=== PATIENT | male | born 1960 | race Caucasian/White ===

== ENCOUNTER 2017-02-09 18:46 | Emergency (ER) | payer OTHER ==
[2017-02-09] MEDS ORDERED: Nitroglycerin 0.4 MG Tab.SL SL PRN ×3 (19:15→19:59)
[2017-02-09] MEDS ORDERED: Sodium Chloride 0.9% 10 ML Syringe FLUSH PRN ×2 (19:19)
[2017-02-09] MEDS ORDERED: Heparin Sodium 5,000 Units/ML Vial IVPUSH ONE (19:19)
[2017-02-09] MEDS ORDERED: Aspirin 81 MG Tab.Chew PO ONE (19:19)
[2017-02-09] MEDS ORDERED: Heparin Sodium/D5W 25,000 UNITS/500 ML BAG IV SCH (19:30)
[2017-02-09] MEDS ORDERED: Nitroglycerin/D5W 25 MG/250 ML BOTTLE IV SCH (19:30)
[2017-02-09] MEDS ORDERED: Ticagrelor 90 MG Tab PO ONE (19:53)
[2017-02-09] MEDS ORDERED: Heparin Sodium/D5W 500 ML ONE (20:16)
[2017-02-09] MEDS ORDERED: cefTRIAXone 1,000 MG in Sodium Chloride 0.9% 50 ML IV SCH (20:30)
[2017-02-09] MEDS ORDERED: Azithromycin 500 MG in Sodium Chloride 0.9% 250 ML IV SCH (20:30)
[2017-02-09 21:50] VITALS: BP 159/80
--- NOTE | 2017-02-10 08:32 | ER ---
DATE SEEN: 02/09/2017 The patient was seen at 1656 hours. /[id number] COLIN/NELI
--- NOTE | 2017-02-10 09:12 | ER ---
DATE SEEN: 02/09/2017 The patient was seen at 1656 hours. HISTORY: Chest x-ray reveals a right middle lobe infiltrate that is new since previous 2015. Also new since his previous CT performed on 12/19/2016 in which he had left 4th, 5th, 6th, 7th, displaced rib fractures and left posterior 4th, 5th, 6th, 7th, 8th rib fractures without pleural effusion. He apparently, at that time, 12/19/2016, had fallen. PLAN: 1. The patient's status is discussed with Dr. Ortez. The patient was started on Rocephin 1 g IV and azithromycin 5 mg IV. The patient will be transferred to [facility] to continue with plans for ablation on 02/11/2017 unless the right middle lobe pneumonia which might prevent ablation. 2. Continue with heparin and the patient has already had his Brilinta dose and nitroglycerine. /[id number] COLIN/NELI SO
--- NOTE | 2017-02-10 15:35 | CR ---
INDICATION: Chest pain. CHEST: AP portable upright view of the chest was obtained 02/09/2017 and compared with 05/21/2013 PA view, and revealed a very poor inspiration on the current study. The right hemidiaphragm is somewhat elevated, possibly partly on that basis. The possibility of subpulmonic effusion is difficult to exclude , however, with this appearance. Findings should be correlated clinically. A lateral decubitus view with the right side down may be helpful in confirming or denying that possibility, as well as a PA and lateral view with full inspiration. The heart appears somewhat enlarged, but is emphasized by the poor inspiration. The possibility of cardiac enlargement cannot be excluded with a full inspiration PA view. The aorta is tortuous. A pacemaker lead is noted in place with its tip in the area of the apex of the right ventricle. It is difficult to exclude infiltration at the left lung base due to the heart overlying the area. No definite consolidating pneumonia or definite effusion was seen, however. Overlying EKG leads are noted. IMPRESSION: 1. No definite acute process, but difficult to exclude a subpulmonic effusion on the right. A right lateral decubitus view may be helpful as felt to be clinically necessary. 2. Probable ASHD, possibly with cardiomegaly - full inspiration PA and lateral views of the chest may be helpful in that regard. MTDD
--- NOTE | 2017-02-11 11:48 | ER ---
DATE SEEN: 02/09/2017 HISTORY OF PRESENT ILLNESS: This 56-year-old man who has had a previous pacemaker placed and defibrillator placed (ICD), is scheduled for ablation on 02/11/2017, at [place]. He has been waiting for three weeks to have this ablation performed. He has had the medications stopped for 3 weeks in preparation for the ablation. He is concerned about taking any medication before the procedure and did not want to have medicine that would prevent his ablation on Tuesday. The patient has not been feeling good today. He has chest tightness, but no chest pain. He is not diaphoretic, but he feels warm. He has slight flush in his face, but that it is not new for him. This fellow is 320 plus pounds, has hypertension, no diabetes, previous chest wall injury some time ago. On 06/21/2016, he was seen in the ED after he got out of bed, fell down nine steps, landed on the ground floor. CT of the chest and abdomen and pelvis was performed. CT of chest showed lateral rib fractures 5th, 6th, and 7th and posterior left 4th, 5th, 6th, 7th, and 8th ribs. The patient accepted a transfer to [facility]. On 07/07/2016 he had difficulty swallowing. Diagnosed with viral syndrome, cervical adenitis, dehydration, odynophagia, which resolved after hospitalization and steroid use. The patient has underlying dyslipidemia and hypertension. He has documented atrial fibrillation, status post-surgery, T and A, pacemaker placement, and ICD placement. REVIEW OF SYSTEMS: HEENT: Negative. CARDIORESPIRATORY: As above. He feels slight tightness in his chest and discomfort and feels sick. Slightly lightheaded. No history of syncope or presyncope. EXTREMITIES: He has mild swelling in his ankles noted. He has gained 20 pounds in the last 2 weeks. MEDICATIONS: 1. Hydrochlorothiazide 25 mg daily. 2. Simvastatin 40 mg at bedtime. 3. Metoprolol 6.25 mg b.i.d., he is held off on this. 4. Lasix 20 mg b.i.d. ALLERGIES: Niacin. PHYSICAL EXAMINATION: VITAL SIGNS: Blood pressure 199/89, heart rate 103, temperature is 37.1, respiratory rate 17, oxygen saturation 95%. HEENT: The patient is anxious, apprehensive, marked massive obesity. PERRLA intact. Pharynx without abnormality. NECK: No thyromegaly or masses. No cervical adenopathy. LUNGS: Clear to auscultation without rales, rhonchi, or wheezes. HEART: S1 and S2. There is occasional irregularity of heartbeat. Occasional PVC noted. No chest wall discomfort. ABDOMEN: No abdominal discomfort. No mass or megaly. He has markedly increased abdomen. EXTREMITIES: He has no pedal edema. The patient states he has gained 20 pounds since 02/05/2017. DIAGNOSTIC DATA: EKG: There is a new decreased aVL, ST depression slight. There is deeper T inversion, aVL compared to his previous EKG performed, 12/19/2016. New V1 (deeper T-wave inversion) instead of 1 mm, now it is 3 mm. V2 new T-wave inversion of 1.5 mm. V3, no change in T-wave. EKG changes. New deeper T-wave inversion in V1. V2 is no longer isoelectric, now it is a T-wave inversion, 1 mm. V3, new elevated T-wave without ST elevation. Lead I, increased T-wave amplitude. Lead II, increased T-wave amplitude. Lead III, suggestion of [address]-elevation. Lead F, new [address] elevation. CONCLUSION: 1. Suggestion of new inferior NE, but it is apparant the st elevatin comes directly after the PVC the goes back to normal and almost qualifies for ST elevation, slightly less than 1 mm. 2. Anterior ischemia changes, new anterior T-wave changes, and sinus tachycardia with increased ventricular PVCs, left atrial enlargement, incomplete right bundle-branch block, left anterior hemiblock, abnormal R- wave progression with late transition. Suggestion of old or intercurrent new anterior myocardial infarction. The ST elevations are very suggestive of new inferior myocardial infarction. Status pending Cardiology's call from [place]. The patient will be transferred depending on disposition. If they call it a STEMI, then we will treat it as STEMI; otherwise, we will be going by ground. If it is a STEMI, then he will be going by air. Await the call. It is now 1935 hours. OTHER DIAGNOSES: 1. Morbid obesity. 2. PVCs with interventricular septum conduction defect, inferior. 3. Incomplete right bundle-branch block and a need for not taking any medicines (per the patient's request because he has waited three weeks to have his ablation performed). We will honor that request until we discuss with the commodity manager and await Cardiology's disposition. 4. Sinus tachycardia secondary to cardiac ischemia. 5. Hypertension. /[id number] COLIN/NELI SO
== END 2017-02-09 21:32 ==
LOC: FB.ED 18:46
DX: I25.9 Chronic ischemic heart disease, unspecified (principal); I49.3 Ventricular premature depolarization; I45.10 Unspecified right bundle-branch block; R94.31 Abnormal electrocardiogram [ECG] [EKG]; I10 Essential (primary) hypertension; E66.01 Morbid (severe) obesity due to excess calories; Z98.890 Other specified postprocedural states; Z95.0 Presence of cardiac pacemaker; Z79.899 Other long term (current) drug therapy
CPT/HCPCS: 36415; 71010; 80053; 81001; 83605; 83880; 84484; 85025; 85379; 87040; 93005; 96365; 96368; 96375; 96376; 99291; A9270; J0456; J0696; J1644; J7050

== ENCOUNTER 2017-07-12 18:19 | Emergency (ER) | payer OTHER ==
[2017-07-12 18:59] VITALS: BP 196/92
--- NOTE | 2017-07-12 20:20 | EDM.PDOC ---
ED HPI GENERAL MEDICAL PROBLEM - General Chief Complaint: Chest Pain Stated Complaint: CHEST PAIN Time Seen by Provider: 07/12/17 18:20 Source of Information: Reports: Patient, Family History Limitations: Reports: No Limitations - History of Present Illness INITIAL COMMENTS - FREE TEXT/NARRATIVE: 57 y.o.w.m came o the ed with a H/O CAD noticed sudden pain at his left upper chest (around the heart) after dinner. 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 ECG showed a NSR BP 156/77 Pulse ox 94 % on RA Temp 36.8 RR 20 HR 93 Onset Date: 07/12/17 Onset Time: 07:00 Duration: Hour(s):, Intermittent Location: Reports: Chest Quality: Reports: Dull Severity: Moderate Improves with: Reports: None Worsens with: Reports: None Context: Reports: Other (H/O CAD) Associated Symptoms: Reports: No Other Symptoms Left Upper Shoulder Pain Score (Numeric/FACES): 0 - Related Data Allergies Allergy/AdvReac Type Severity Reaction Status Date / Time niacin Allergy Rash Verified 02/09/17 19:24 Home Meds: Home Meds Furosemide 40 mg PO DAILY 07/07/16 [History] Metoprolol Tartrate 6.25 mg PO BID 07/07/16 [History] Multivitamin [Multivitamins] 1 tab PO BEDTIME 07/07/16 [History] Simvastatin 40 mg PO BEDTIME 07/07/16 [History] Hydrochlorothiazide [Hydrochlorothiazide] 25 mg PO DAILY 02/09/17 [History] Past Medical History Cardiovascular History: Reports: Afib, High Cholesterol, Hypertension, Pacemaker , Other (See Below) Other Cardiovascular History: defib. 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 Neurological History: Reports: Headaches, Chronic Psychiatric History: Reports: None Endocrine/Metabolic History: Reports: Obesity/BMI 30+ Hematologic History: Reports: Blood Transfusion(s) - Past Surgical History HEENT Surgical History: Reports: Adenoidectomy, Tonsillectomy Cardiovascular Surgical History: Reports: Cardiac Ablation Other Cardiovascular Surgeries/Procedures: FEB 2017, FIRST ABLATION Musculoskeletal Surgical History: Reports: Other (See Below) Other Musculoskeletal Surgeries/Procedures:: broken ribs & floaters, back surgery Social & Family History - Family History Family Medical History: Noncontributory - Tobacco Use Smoking Status *Q: Former Smoker Years of Tobacco use: 25 Used Tobacco, but Quit: Yes Month Tobacco Last Used: UNKNOWN Second Hand Smoke Exposure: No - Caffeine Use Caffeine Use: Reports: None - Alcohol Use Days Per Week of Alcohol Use: 7 Number of Drinks Per Day: 2 Total Drinks Per Week: 14 - Recreational Drug Use Recreational Drug Use: No ED ROS GENERAL - Review of Systems Review Of Systems: See Below Constitutional: Reports: No Symptoms HEENT: Reports: No Symptoms Respiratory: Reports: No Symptoms Cardiovascular: Reports: No Symptoms (CP subsided CONCRETE INSPECTOR) Endocrine: Reports: No Symptoms GI/Abdominal: Reports: No Symptoms : Reports: No Symptoms Musculoskeletal: Reports: No Symptoms Skin: Reports: No Symptoms Neurological: Reports: No Symptoms Psychiatric: Reports: No Symptoms Hematologic/Lymphatic: Reports: No Symptoms Immunologic: Reports: No Symptoms ED EXAM, GENERAL - Physical Exam Exam: See Below Exam Limited By: No Limitations General Appearance: Alert, WD/WN, No Apparent Distress, Obese Eye Exam: Bilateral Eye: Normal Inspection Ears: Normal External Exam, Normal Canal Ear Exam: Bilateral Ear: Auricle Normal Nose: Normal Inspection, Normal Mucosa Throat/Mouth: Normal Inspection, Normal Lips Head: Atraumatic, Normocephalic Neck: Normal Inspection, Supple, Non-Tender Respiratory/Chest: No Respiratory Distress, Lungs Clear, Normal Breath Sounds, No Accessory Muscle Use Cardiovascular: Normal Peripheral Pulses, Regular Rate, Rhythm, No Edema, No Gallop Peripheral Pulses: 1+: Radial (L) GI/Abdominal: Normal Bowel Sounds, Soft, Non-Tender, No Organomegaly, No Distention (Male) Exam: Deferred Rectal (Males) Exam: Deferred Back Exam: Normal Inspection, Full Range of Motion Extremities: Normal Inspection, Normal Range of Motion, Non-Tender, No Pedal Edema Neurological: Alert, Oriented, CN II-XII Intact, Normal Cognition, Normal Gait Psychiatric: Normal Affect, Normal Mood Skin Exam: Warm, Dry, Intact, Normal Color, No Rash Lymphatic: No Adenopathy EKG INTERPRETATION EKG Date: 07/12/17 Time: 18:25 Rhythm: NSR Rate (Beats/Min): 93 [place]: Normal P-Wave: Present QRS: Normal ST-T: Normal QT: Normal Comparison: NA - No Prior EKG Course - Vital Signs Text/Narrative:: 57 y.o.w.m came o the ed with a H/O CAD noticed sudden pain at his left upper chest (around the heart) after dinner. 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 ECG showed a NSR BP 156/77 Pulse ox 94 % on RA Temp 36.8 RR 20 HR 93 PE: Morbid obes w m. NAD EKG: SR CXR and labs: refuse Impression: H/O CAD. CP subsided CONCRETE INSPECTOR, signed out AMA TX: Pt refused any kind of meds Plan: Pt says, he is in his usual state of health and wants to go home. He signed out AMA Last Recorded V/S: Last Vital Signs Temp 36.8 C 07/12/17 18:54 Pulse 90 07/12/17 18:54 Resp 24 H 07/12/17 18:54 BP 196/92 H 07/12/17 18:54 Pulse Ox 94 L 07/12/17 18:20 Departure - Departure Time of Disposition: 19:00 Disposition: Against Medical Advice 07 Condition: Good Clinical Impression: Chest pain Qualifiers: Ischemic chest pain type: unspecified angina pectoris type Referrals: PCP,None [Primary Care Provider] - Forms: ED Department Discharge
== END 2017-07-12 19:15 | disposition left against medical advice (07) ==
LOC: FB.ED 18:19
DX: I25.110 Atherosclerotic heart disease of native coronary artery with unstable angina pectoris (principal); I48.91 Unspecified atrial fibrillation; I10 Essential (primary) hypertension; E78.00 Pure hypercholesterolemia, unspecified; Z88.8 Allergy status to other drugs, medicaments and biological substances; Z95.0 Presence of cardiac pacemaker; Z87.891 Personal history of nicotine dependence; Z79.899 Other long term (current) drug therapy
CPT/HCPCS: 93005; 99285